=== PATIENT | female | born 1955 | race Two or more races ===

== ENCOUNTER 2019-10-12 06:13 | Emergency (ER) | payer OTHER ==
[~2019-10-12] VITALS: Ht 147.3 cm; Wt 94.3 kg
[2019-10-12 07:44] LABS: Urine Bacteria FEW /hpf (None Seen); Urine Blood 3+ /uL (Negative); Urine Specific Gravity 1.003 (1.001-1.035); Urine WBC 14 /hpf (0 - 5)
[2019-10-12 08:36] VITALS: BP 135/66
== END 2019-10-12 08:57 | disposition home or self-care (01) ==
LOC: ER 06:13
DX: N39.0 Urinary tract infection, site not specified (principal); I10 Essential (primary) hypertension
CPT/HCPCS: 81001

== ENCOUNTER 2021-02-26 02:58 | Emergency (ER) | payer OTHER ==
[~2021-02-26] VITALS: Ht 149.9 cm; Wt 92.8 kg
[2021-02-26 07:43] LABS: Urine Bacteria MOD /hpf (None Seen); Urine Blood 2+ /uL (Negative); Urine Specific Gravity 1.002 (1.001-1.035); Urine WBC 11 /hpf (0 - 5)
[2021-02-26] MEDS ORDERED: NITR-87 PO (11:36)
[2021-02-26] MEDS ORDERED: PERCOT PO (11:36)
[2021-02-26 13:46] VITALS: BP 117/56
== END 2021-02-26 14:33 | disposition home or self-care (01) ==
LOC: ER 02:58
DX: N39.0 Urinary tract infection, site not specified (principal); I10 Essential (primary) hypertension; E03.9 Hypothyroidism, unspecified
CPT/HCPCS: 74176; 81001

== ENCOUNTER 2021-03-14 10:41 | Emergency (ER) | payer OTHER ==
[~2021-03-14] VITALS: Ht 162.6 cm; Wt 92.1 kg
[~2021-03-14 10:41] MED LIST: NITR-87 PO; PERCOT PO
[2021-03-14 11:24] LABS: Urine Bacteria NONE SEEN /hpf (None Seen); Urine Specific Gravity 1.003 (1.001-1.035); Urine WBC 69 /hpf (0 - 5)
[2021-03-14 11:28] LABS: Urine Blood Trace /uL (Negative)
[2021-03-14 11:52] VITALS: BP 120/56
[2021-03-14] MEDS ORDERED: CIPR-173 PO (12:07)
[2021-03-14] MEDS ORDERED: PROM1SOL4 PO (12:07)
== END 2021-03-14 12:13 | disposition home or self-care (01) ==
LOC: ER 10:41
DX: N39.0 Urinary tract infection, site not specified (principal); I10 Essential (primary) hypertension
CPT/HCPCS: 81001

== ENCOUNTER 2021-06-23 14:45 | Emergency (ER) | payer OTHER ==
[~2021-06-23] VITALS: Ht 177.8 cm; Wt 89.8 kg
[~2021-06-23 14:45] MED LIST changes: +CIPR-173 PO; +PROM1SOL4 PO
[2021-06-23 14:49] VITALS: BP 129/68
[2021-06-23 15:50] LABS: Urine Bacteria FEW /hpf (None Seen); Urine Blood Negative /uL (Negative); Urine Hyaline Cast FEW /lpf (0 - 2); Urine Specific Gravity 1.016 (1.001-1.035); Urine WBC 1 /hpf (0 - 5)
[2021-06-23] MEDS ORDERED: CEPH-509 PO (16:45)
== END 2021-06-23 17:05 | disposition home or self-care (01) ==
LOC: ER 14:45
DX: N39.0 Urinary tract infection, site not specified (principal); R10.2 Pelvic and perineal pain; I10 Essential (primary) hypertension; E03.9 Hypothyroidism, unspecified; Z79.2 Long term (current) use of antibiotics; Z79.899 Other long term (current) drug therapy
CPT/HCPCS: 76856; 81001

== ENCOUNTER 2022-01-09 20:59 | Emergency (ER) | payer OTHER ==
[~2022-01-09] VITALS: Ht 152.4 cm; Wt 86.3 kg
[~2022-01-09 20:59] MED LIST changes: +CEPH-509 PO
[2022-01-10 00:53] VITALS: BP 118/65
== END 2022-01-10 01:37 | disposition home or self-care (01) ==
LOC: ER 20:59
DX: M25.562 Pain in left knee (principal); M25.561 Pain in right knee; I10 Essential (primary) hypertension; E03.9 Hypothyroidism, unspecified; Z79.899 Other long term (current) drug therapy; W22.8XXA Striking against or struck by other objects, initial encounter; Y93.89 Activity, other specified; Y92.89 Other specified places as the place of occurrence of the external cause; Y99.8 Other external cause status
CPT/HCPCS: 73562

== ENCOUNTER 2022-05-12 16:19 | Emergency (ER) | payer OTHER ==
[~2022-05-12] VITALS: Ht 160 cm; Wt 90.2 kg
[2022-05-12 17:58] LABS: Basophils # (auto) 0.1 10 ^3/uL (0-0.2); Basophils % (auto) 0.7 % (0.0-2.0); Eosinophils # (auto) 0.2 10 ^3/uL (0-0.8); Eosinophils % (auto) 2.7 % (0.0-7.0); Hemoglobin 15.3 g/dL (12.2-16.2); Lymphocytes # (auto) 2.1 10 ^3/uL (0.4-5.4); Mean Corpuscular Hgb Conc. 34.8 g/dL (32.0-36.0); Monocytes # (auto) 0.7 10 ^3/uL (0-1.3); Monocytes % (auto) 8.3 % (0.0-12.0); Neutrophils # (auto) 5.4 10 ^3/uL (1.6-8.6); Neutrophils % (auto) 63.3 % (37.0-80.0); Nucleated Red Blood Cells % 0.2 %; Red Blood Cells 4.63 10^6/uL (4.0-5.20); Red Cell Distribution Width 13.9 % (11.8-14.3); White Blood Cell 8.6 10^3/uL (4.4-10.8)
[2022-05-12 18:14] LABS: BUN/Creatinine Ratio 36.9; Calcium 9.9 mg/dL (8.5-10.1); Potassium 4.5 mmol/L (3.5-5.1)
[2022-05-12 18:17] LABS: Bilirubin, Total 0.5 mg/dL (0.2-1.0); Total Protein 7.2 g/dL (6.4-8.2)
[2022-05-12 23:38] VITALS: BP 143/74
== END 2022-05-12 23:40 | disposition home or self-care (01) ==
LOC: ER 16:19
DX: M79.601 Pain in right arm (principal); I10 Essential (primary) hypertension; Z79.899 Other long term (current) drug therapy
CPT/HCPCS: 36415; 70450; 71046; 80053; 84484; 85025; 93005

== ENCOUNTER 2022-11-08 01:19 | Emergency (ER) | payer OTHER ==
[~2022-11-08] VITALS: Ht 149.9 cm; Wt 91.3 kg
[2022-11-08 02:34] LABS: Urine Bacteria FEW /hpf (None Seen); Urine Blood Negative /uL (Negative); Urine Clarity Clear (Clear); Urine Color Yellow (Yellow); Urine Protein, UAD Negative (Negative); Urine Specific Gravity 1.007 (1.001-1.035); Urine Urobilinogen Normal (Negative); Urine WBC 1 /hpf (0 - 5)
[2022-11-08 06:47] LABS: Basophils # (auto) 0 10 ^3/uL (0-0.2); Basophils % (auto) 0.3 % (0.0-2.0); Eosinophils # (auto) 0.5 10 ^3/uL (0-0.8); Eosinophils % (auto) 3.9 % (0.0-7.0); Hematocrit 44.9 % (36.0-46.0); Hemoglobin 15.2 g/dL (12.2-16.2); Lymphocytes # (auto) 0.9 10 ^3/uL (0.4-5.4); Lymphocytes % (auto) 7.2 % (10.0-50.0); Mean Corpuscular Hemoglobin 31.9 pg (28.0-32.0); Mean Corpuscular Hgb Conc. 33.9 g/dL (32.0-36.0); Mean Corpuscular Volume 94.1 fL (80.0-100.0); Monocytes # (auto) 0.9 10 ^3/uL (0-1.3); Monocytes % (auto) 6.8 % (0.0-12.0); Neutrophils # (auto) 10.7 10 ^3/uL (1.6-8.6); Neutrophils % (auto) 81.8 % (37.0-80.0); Nucleated Red Blood Cells % 0.1 %; Red Blood Cells 4.78 10^6/uL (4.0-5.20); Red Cell Distribution Width 13.8 % (11.8-14.3)
[2022-11-08 06:56] LABS: Albumin 4.1 g/dL (3.4-5.0); Magnesium 2.4 mg/dL (1.6-2.6); Potassium 3.7 mmol/L (3.5-5.1)
[2022-11-08 07:01] LABS: Bilirubin, Total 0.8 mg/dL (0.2-1.0); Total Protein 7.4 g/dL (6.4-8.2)
[2022-11-08] MEDS ORDERED: DICL50TA2 PO (09:52)
[2022-11-08] MEDS ORDERED: TRAM50TA2 PO (09:52)
[2022-11-08 10:28] VITALS: BP 133/81; PULSE 71; RESP 18; TEMP 98.9; O2SAT 95
== END 2022-11-08 10:30 | disposition home or self-care (01) ==
LOC: ER 01:19
DX: K76.0 Fatty (change of) liver, not elsewhere classified (principal); E66.9 Obesity, unspecified; I10 Essential (primary) hypertension; Z87.440 Personal history of urinary (tract) infections; Z68.41 Body mass index [BMI] 40.0-44.9, adult
CPT/HCPCS: 36415; 71045; 74176; 80053; 81001; 83690; 83735; 84484; 85025